=== PATIENT | female | born 1980 ===

== ENCOUNTER 2023-02-25 11:48 | Outpatient (CLI) | payer OTHER, SELFPAY ==
[2023-02-25 12:43] VITALS: BMI 32.5
--- NOTE | 2023-02-25 12:50 | ECG_ITS ---
[facility] Test Date: 2023-02-25 Pat Name: Rashawn Pleitez Department: Room: Gender: Female Work Checker: : 1980 Requested By: Alejandro Morna Order Number: [id number] Shireen MD: Keaton Ng M.D. Interpretive Statements Lung unchanged pre/post procedure Intraprocedure shortess of breath; Symptoms resoled by discharge PROCEDURE: The baseline electrocardiogram showed normal sinus rhythm with normal ST-Ts. At the baseline, the patient's blood pressure was 170/116 mm Hg with a heart rate of 84. The patient exercised for 9 minutes on a standard Arnold protocol. Patient attained a maximum heart rate of 178 beats per minute(100% of the maximum predicted heart rate) with a blood pressure at the peak exercise of 159/87 mm Hg. The EKG at the peak exercise revealed no significant changes. Patient did not have any chest pain or any significant arrhythmis with the exercise Sestamibi was injected 1 minute prior to the peak exercise During the recovery phase, there were no new changes. Blood pressure at the end of the recovery phase was 156/100 mm Hg with a heart rate of 115 per minute. CONCLUSION: 1. No significant EKG changes with the [treadmill exercise 2. No exercise-induced chest pain or cardiac arrhythmia 3. Fair exercise tolerance, attained a maximum of 10.2 METs 4. Sestamibi/Sestamibi perfusion results pending; see separate report. Electronically Signed On 02-28-2023 15:18:42 CDT by Keaton Ng M.D. [id number]
[2023-02-25 13:39] VITALS: BP 160/111; PULSE 115
== END 2023-02-25 11:49 | disposition home or self-care (01) ==
PROVIDERS: Visit Provider Electrodiagnostic Medicine
DX: R07.9 Chest pain, unspecified (principal)
CPT/HCPCS: 93017